=== PATIENT | male | born 1985 | race Caucasian/White ===

== ENCOUNTER 2018-12-25 20:18 | Emergency (ER) | payer BC ==
[2018-12-25] MEDS ORDERED: Diphtheria,Pertussis(Acell),Tetanus Vaccine 0.5 ML Syringe IM ONE (21:14)
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
== END 2018-12-25 22:04 | disposition home or self-care (01) ==
LOC: MW.ED 20:18
DX: S50.812A Abrasion of left forearm, initial encounter (principal); J06.9 Acute upper respiratory infection, unspecified; F17.210 Nicotine dependence, cigarettes, uncomplicated; Z88.8 Allergy status to other drugs, medicaments and biological substances; W31.89XA Contact with other specified machinery, initial encounter
CPT/HCPCS: 87081; 87880-QW; 90471; 90715; 99283

== ENCOUNTER 2021-05-24 22:31 | Emergency (ER) | payer OTHER, BC ==
[2021-05-24] MEDS ORDERED: Lidocaine 2% 100 MG/5 ML Syringe IVPUSH ONE (22:40)
[2021-05-24] MEDS ORDERED: Etomidate 2 MG/ML 20 ML SDV IVPUSH ONE (22:41)
[2021-05-24] MEDS ORDERED: Propofol 200 MG/20 ML SDV ONE (22:41)
[2021-05-24] MEDS ORDERED: propofoL 100 ML ONE (22:41)
[2021-05-24] MEDS ORDERED: Succinylcholine 200 MG/10 ML MDV IV ONE (22:42)
[2021-05-24] MEDS ORDERED: Famotidine 20 MG/2 ML SDV ONE (22:57)
[2021-05-24] MEDS ORDERED: Diphtheria/Tetanus Toxoids,Adult (Td) 0.5 ML Syringe ONE (22:58)
[2021-05-24] MEDS ORDERED: ceFAZolin 1 GM Vial ONE (22:59)
[2021-05-24] MEDS ORDERED: Ondansetron 4 MG/2 ML SDV IVPUSH ONE (23:14)
[2021-05-24] MEDS ORDERED: Sodium Chloride 0.9% 10 ML Syringe FLUSH PRN (23:14)
[2021-05-24] MEDS ORDERED: Sodium Chloride 0.9% 1,000 ML IV ONE (23:14)
[2021-05-24] MEDS ORDERED: Sodium Chloride 0.9% 2.5 ML Syringe FLUSH PRN (23:14)
[2021-05-24] MEDS ORDERED: Ondansetron 4 MG/2 ML SDV ONE (23:17)
[2021-05-24 23:20] LABS: BLOOD UREA NITROGEN,BUN 15 mg/dL (7.0-18.0); CARBON DIOXIDE,CO2 26.8 mmol/L (21.0-32.0); CHLORIDE,CL 105 mmol/L (98-107); GLUCOSE RANDOM 124 mg/dL (74-106); POTASSIUM,K 3.1 mmol/L (3.5-5.1); SODIUM,NA 143 mmol/L (136-148)
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
[2021-05-24 23:27] LABS: LIPASE 105 U/L (73-393)
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
[2021-05-25] MEDS ORDERED: ceFAZolin 1 GM in Premix Bag 1 BAG IV ONE (00:02)
[2021-05-25] MEDS ORDERED: Diphtheria/Tetanus Toxoids,Adult (Td) 0.5 ML Syringe IM ONE (00:05)
[2021-05-25] MEDS ORDERED: Sodium Chloride 0.9% 1,000 ML IV STA (00:05)
[2021-05-25] MEDS ORDERED: propofoL 100 ML IV SCH (00:15)
== END 2021-05-24 23:30 ==
LOC: MW.ED 22:31
DX: S02.91XA Unspecified fracture of skull, initial encounter for closed fracture (principal); S81.812A Laceration without foreign body, left lower leg, initial encounter; J96.90 Respiratory failure, unspecified, unspecified whether with hypoxia or hypercapnia; R40.2110 Coma scale, eyes open, never, unspecified time; R40.2350 Coma scale, best motor response, localizes pain, unspecified time; R40.2 Coma; Z88.8 Allergy status to other drugs, medicaments and biological substances; V29.9XXA Motorcycle rider (driver) (passenger) injured in unspecified traffic accident, initial encounter; Y92.410 Unspecified street and highway as the place of occurrence of the external cause
CPT/HCPCS: 31500; 36415; 43752; 51702; 71045; 72170; 73590; 80053; 80305; 80307; 81003; 83690; 83735; 84484; 85025; 85610; 85730; 99285; G0390; J0330; J2704; J3490

== ENCOUNTER 2021-10-10 12:28 | Emergency (ER) | payer BC, OTHER ==
[2021-10-10] MEDS ORDERED: Sodium Chloride 0.9% 10 ML Syringe FLUSH PRN (12:37)
[2021-10-10] MEDS ORDERED: Sodium Chloride 0.9% 2.5 ML Syringe FLUSH PRN (12:37)
[2021-10-10] MEDS ORDERED: ceFAZolin 1 GM in Premix Bag 1 BAG IV STA (12:40)
[2021-10-10 13:51] LABS: BLOOD UREA NITROGEN,BUN 17 mg/dL (7.0-18.0); CARBON DIOXIDE,CO2 24.9 mmol/L (21.0-32.0); CHLORIDE,CL 102 mmol/L (98-107); GLUCOSE RANDOM 115 mg/dL (74-106); POTASSIUM,K 3.9 mmol/L (3.5-5.1); SODIUM,NA 138 mmol/L (136-148)
[2021-10-10] MEDS ORDERED: Lidocaine 2% 5 ML SDV INJECT ONE (14:07)
[2021-10-10] MEDS ORDERED: HYDROmorphone 1 MG/ML Syringe IVPUSH ONE (14:11)
[2021-10-10] MEDS ORDERED: Lidocaine 1% 5 ML VIAL INJECT ONE (14:14)
[2021-10-10] MEDS ORDERED: Bacitracin Oint 1 GM U/D Packet TOP ONE (16:01)
== END 2021-10-10 17:11 | disposition home or self-care (01) ==
LOC: MW.ED 12:28
DX: S62.606A Fracture of unspecified phalanx of right little finger, initial encounter for closed fracture (principal); R56.9 Unspecified convulsions; Z91.041 Radiographic dye allergy status; Z79.899 Other long term (current) drug therapy; V29.9XXA Motorcycle rider (driver) (passenger) injured in unspecified traffic accident, initial encounter; Y92.410 Unspecified street and highway as the place of occurrence of the external cause
CPT/HCPCS: 36415; 70450; 71045; 72125; 72170; 73030; 73060; 73130; 80053; 80305; 80307; 85025; 93005; 96365; 96375; 99285; J0690; J1170; J3490; 93010; 99284

== ENCOUNTER 2021-10-13 12:23 | Emergency (ER) | payer SELFPAY ==
[2021-10-13] MEDS ORDERED: Ondansetron 4 MG/2 ML SDV IVPUSH ONE (12:27)
[2021-10-13] MEDS ORDERED: HYDROmorphone 1 MG/ML Syringe IVPUSH ONE (12:27)
[2021-10-13] MEDS ORDERED: Sodium Chloride 0.9% 10 ML Syringe FLUSH PRN (12:27)
[2021-10-13] MEDS ORDERED: Sodium Chloride 0.9% 2.5 ML Syringe FLUSH PRN (12:27)
[2021-10-13] MEDS ORDERED: Propofol 200 MG/20 ML SDV IVPUSH ONE ×2 (12:37→13:34)
[2021-10-13] MEDS ORDERED: HYDROmorphone 2 MG/ML Syringe IVPUSH ONE (14:01)
== END 2021-10-13 14:27 | disposition home or self-care (01) ==
LOC: MW.ED 12:23
DX: S43.005A Unspecified dislocation of left shoulder joint, initial encounter (principal); Z88.8 Allergy status to other drugs, medicaments and biological substances; Z86.16 Personal history of COVID-19; W22.09XA Striking against other stationary object, initial encounter
CPT/HCPCS: 23650; 73030; 96374; 96375; 96376; 99283; J1170; J2405; J2704; J3490

== ENCOUNTER 2022-01-10 17:38 | Emergency (ER) | payer BC ==
[2022-01-10] MEDS ORDERED: Ketorolac 30 MG/ML SDV IM ONE (21:17)
== END 2022-01-10 21:51 | disposition home or self-care (01) ==
LOC: MW.ED 17:38
DX: M24.412 Recurrent dislocation, left shoulder (principal); Z88.8 Allergy status to other drugs, medicaments and biological substances; Z79.899 Other long term (current) drug therapy; Z86.16 Personal history of COVID-19
CPT/HCPCS: 73030-26-LT; 73030-LT; 99283

== ENCOUNTER 2022-09-27 22:41 | Inpatient (IN) | payer BC ==
[2022-09-27] MEDS ORDERED: LORazepam 2 MG/ML SDV ONE (22:51)
[2022-09-27] MEDS ORDERED: Sodium Chloride 0.9% 10 ML Syringe FLUSH PRN (22:58)
[2022-09-27] MEDS ORDERED: LORazepam 2 MG/ML SDV IVPUSH ONE (22:58)
[2022-09-27] MEDS ORDERED: Ondansetron 4 MG/2 ML SDV IVPUSH ONE (22:58)
[2022-09-27] MEDS ORDERED: Sodium Chloride 0.9% 1,000 ML IV ONE (22:58)
[2022-09-27] MEDS ORDERED: Sodium Chloride 0.9% 2.5 ML Syringe FLUSH PRN (22:58)
[2022-09-27 23:29] LABS: BLOOD UREA NITROGEN,BUN 17 mg/dL (7.0-18.0); CARBON DIOXIDE,CO2 17.3 mmol/L (21.0-32.0); CHLORIDE,CL 105 mmol/L (98-107); GLUCOSE RANDOM 139 mg/dL (74-106); POTASSIUM,K 3.5 mmol/L (3.5-5.1); SODIUM,NA 145 mmol/L (136-148)
[2022-09-27 23:31] LABS: ESTIMATED GFR 53 mL/min (>60)
[2022-09-28] MEDS ORDERED: Acetaminophen 325 MG Tab PO ONE (01:30)
[2022-09-28] MEDS ORDERED: Ibuprofen 600 MG Tab PO ONE (01:30)
[2022-09-28] MEDS ORDERED: Sodium Chloride 0.9% 1,000 ML IV ONE ×2 (01:31)
[2022-09-28] MEDS ORDERED: cefTRIAXone 1 GM in Sodium Chloride 0.9% 50 ML IV ONE (01:32)
[2022-09-28 04:45] LABS: CORONAVIRUS COVID-19 NAA NEGATIVE (NEGATIVE); INFLUENZA A NAA NEGATIVE (NEGATIVE); INFLUENZA B NAA NEGATIVE (NEGATIVE)
[2022-09-28] MEDS ORDERED: LORazepam 2 MG/ML SDV IVPUSH PRN (08:19)
[2022-09-28] MEDS: Divalproex Sodium 500 MG Tab.ER PO SCH ×2 (09:16→21:43)
[2022-09-28 09:28] LABS: CARBON DIOXIDE,CO2 22.1 mmol/L (21.0-32.0); POTASSIUM,K 3.9 mmol/L (3.5-5.1)
[2022-09-28] MEDS ORDERED: Acetaminophen 325 MG Tab PO PRN (13:01)
[2022-09-28] MEDS ORDERED: Ibuprofen 400 MG Tab PO PRN (13:01)
[2022-09-28] MEDS: oxyCODONE 5 MG Tab PO PRN ×2 (15:35→21:44)
[2022-09-28] MEDS: Calcium Carbonate 500 MG Tab.Chew PO PRN ×2 (18:59→22:51)
[2022-09-29] MEDS: oxyCODONE 5 MG Tab PO PRN (07:21)
[2022-09-29 07:27] LABS: CARBON DIOXIDE,CO2 25.7 mmol/L (21.0-32.0); POTASSIUM,K 3.6 mmol/L (3.5-5.1)
[2022-09-29] MEDS: Divalproex Sodium 500 MG Tab.ER PO SCH (09:39)
== END 2022-09-29 11:55 | disposition home or self-care (01) | DRG 53 ==
LOC: MW.ED 22:41 → MW.ICU 09-28 01:02 → MW.MS 09-28 11:44
PROVIDERS: ADMIT Internal Medicine; ATTEND Internal Medicine
DX: G40.909 Epilepsy, unspecified, not intractable, without status epilepticus (principal); D72.829 Elevated white blood cell count, unspecified; E87.20 Acidosis, unspecified; Z20.822 Contact with and (suspected) exposure to COVID-19; M95.4 Acquired deformity of chest and rib; F32.A Depression, unspecified; Z79.899 Other long term (current) drug therapy; Z87.820 Personal history of traumatic brain injury; Z88.8 Allergy status to other drugs, medicaments and biological substances; Z91.041 Radiographic dye allergy status; Z98.890 Other specified postprocedural states
CPT/HCPCS: 0240U; 36415; 70450; 70450-26; 71045; 71045-26; 73030-26-LT; 73030-LT; 80048; 80053; 80164; 80305-QW; 80307; 81001; 82140; 83605; 83735; 85025; 87040; 96361; 96365; 96375; 96376; 99285-25; A9270-GY; J0696; J1953; J2060; J2405; J3490; J7030; J7050; J7060

== ENCOUNTER 2023-01-05 15:12 | Emergency (ER) | payer BC ==
[2023-01-05] MEDS ORDERED: LORazepam 2 MG/ML SDV IVPUSH ONE ×3 (15:24→16:15)
[2023-01-05] MEDS ORDERED: Sodium Chloride 0.9% 2.5 ML Syringe FLUSH PRN (15:34)
[2023-01-05] MEDS ORDERED: Sodium Chloride 0.9% 1,000 ML IV ONE ×2 (15:34→21:26)
[2023-01-05] MEDS ORDERED: Sodium Chloride 0.9% 10 ML Syringe FLUSH PRN (15:34)
[2023-01-05 15:46] LABS: BASOPHILS PERCENT AUTO 0.1 % (0.0-1.5); EOSINOPHILS ABSOLUTE AUTO 0.5 K/uL (0.0-0.7); EOSINOPHILS PERCENT AUTO 2.5 % (0.0-7.0); HEMATOCRIT 47.3 % (38.0-50.0); HEMOGLOBIN 15.6 g/dL (13.0-17.0); LYMPHOCYTES PERCENT AUTO 35.7 % (16.0-40.0); MEAN CORPUSCULAR HEMOGLOBIN 31.1 pg (27.0-32.0); MEAN CORPUSCULAR VOLUME 94.4 fL (80.0-98.0); MONOCYTES ABSOLUTE AUTO 1.8 K/uL (0.0-0.8); MONOCYTES PERCENT AUTO 9.3 % (0.0-15.0); NEUTROPHILS ABSOLUTE AUTO 10.3 K/uL (1.4-5.7); NEUTROPHILS PERCENT AUTO 52.4 % (48.0-80.0); PLATELET COUNT,PLT 338 K/uL (150-400); RED BLOOD CELL COUNT 5.01 M/uL (4.50-5.90); WHITE BLOOD CELL COUNT,WBC 19.59 K/uL (4.0-11.0)
[2023-01-05] MEDS ORDERED: LORazepam 2 MG/ML SDV ONE (16:08)
[2023-01-05 16:12] LABS: A/G RATIO 0.9 (0.9-1.6); ALANINE AMINOTRANSFERASE,ALT 41 IU/L (14-63); ALBUMIN 4.2 g/dL (3.4-5.0); ALKALINE PHOSPHATASE 91 U/L (46-116); ASPARTATE AMNIOTRANSFERASE,AST 24 IU/L (15-37); BILIRUBIN TOTAL 0.3 mg/dL (0.2-1.0); BLOOD UREA NITROGEN,BUN 19 mg/dL (7.0-18.0); CALCIUM 9.5 mg/dL (8.5-10.1); CARBON DIOXIDE,CO2 12.8 mmol/L (21.0-32.0); CHLORIDE,CL 106 mmol/L (98-107); CREATINE KINASE,CK 190 U/L (26-308); CREATININE 1.6 mg/dL (0.8-1.3); GLUCOSE RANDOM 140 mg/dL (74-106); POTASSIUM,K 3.9 mmol/L (3.5-5.1); PROTEIN TOTAL,TP 8.8 g/dL (6.4-8.2); SODIUM,NA 146 mmol/L (136-148)
[2023-01-05 16:17] LABS: ESTIMATED GFR 57 mL/min (>60)
[2023-01-05] MEDS ORDERED: Valproate Sodium 500 MG/5 ML SDV IV STA (19:43)
[2023-01-05] MEDS ORDERED: Valproate Sodium 750 MG in Sodium Chloride 0.9% 100 ML IV ONE (20:00)
== END 2023-01-06 00:30 ==
LOC: MW.ED 15:12
DX: G40.909 Epilepsy, unspecified, not intractable, without status epilepticus (principal); Z91.041 Radiographic dye allergy status; Z88.8 Allergy status to other drugs, medicaments and biological substances; Z86.16 Personal history of COVID-19
CPT/HCPCS: 31500; 36415; 43752; 51702; 70450; 71045; 80053; 80164; 82550; 85025; 93005; 96365; 96366; 96367; 96375; 96376; 99285; J1953; J2060; J3490; J7030; J7060; 93010